=== PATIENT | male | born 2005 | race Caucasian/White ===

== ENCOUNTER 2024-08-04 08:03 | Outpatient (CLI) | payer OTHER | END 2024-08-04 08:04 | disposition home or self-care (01) | LOC: CSHWCC 08:03 | PROVIDERS: ATTEND Nurse Practitioner Family | DX: L97.522 Non-pressure chronic ulcer of other part of left foot with fat layer exposed (principal); L97.122 Non-pressure chronic ulcer of left thigh with fat layer exposed | CPT/HCPCS: 11042; 99203; G0463 ==

== ENCOUNTER 2024-08-11 14:28 | Outpatient (CLI) | payer OTHER | END 2024-08-11 14:29 | disposition home or self-care (01) | LOC: CSHWCC 14:28 | PROVIDERS: ATTEND Nurse Practitioner Family | DX: L97.122 Non-pressure chronic ulcer of left thigh with fat layer exposed (principal); L97.522 Non-pressure chronic ulcer of other part of left foot with fat layer exposed | CPT/HCPCS: 97597 ==

== ENCOUNTER 2024-08-20 15:44 | Outpatient (CLI) | payer OTHER | END 2024-08-20 15:45 | disposition home or self-care (01) | LOC: CSHWCC 15:44 | PROVIDERS: ATTEND Nurse Practitioner Family | DX: L97.522 Non-pressure chronic ulcer of other part of left foot with fat layer exposed (principal); L97.122 Non-pressure chronic ulcer of left thigh with fat layer exposed | CPT/HCPCS: 99213; G0463 ==